=== PATIENT | female | born 1955 | race Caucasian/White ===

== ENCOUNTER 2023-01-10 09:54 | Emergency (ER) | payer MEDICARE, MEDICAID ==
[2023-01-10] MEDS ORDERED: Ondansetron 4 MG Tab.DIS PO ONE (11:34)
[2023-01-10] MEDS ORDERED: Acetaminophen/oxyCODONE 325-5 MG Tab PO ONE (11:34)
== END 2023-01-10 13:47 | disposition home or self-care (01) ==
LOC: JD.ED 09:54
DX: S39.012A Strain of muscle, fascia and tendon of lower back, initial encounter (principal); S13.4XXA Sprain of ligaments of cervical spine, initial encounter; S00.03XA Contusion of scalp, initial encounter; E66.9 Obesity, unspecified; Z68.41 Body mass index [BMI] 40.0-44.9, adult; Z88.0 Allergy status to penicillin; Z88.2 Allergy status to sulfonamides; W17.89XA Other fall from one level to another, initial encounter; Y92.512 Supermarket, store or market as the place of occurrence of the external cause
CPT/HCPCS: 70450; 72125; 72131; 99283; A9270

== ENCOUNTER 2023-04-24 09:17 | Emergency (ER) | payer MEDICARE, MEDICAID ==
[2023-04-24] MEDS ORDERED: Sodium Chloride 0.9% 10 ML Syringe FLUSH PRN (09:33)
[2023-04-24 09:54] LABS: BASOPHILS PERCENT AUTO 0.5 % (0.0-1.0); EOSINOPHILS ABSOLUTE AUTO 0.1 K/mm3 (0.0-0.4); EOSINOPHILS PERCENT AUTO 3.2 % (0.0-6.0); HEMATOCRIT 38.3 % (37.0-47.0); HEMOGLOBIN 12.4 gm/dl (12.0-16.0); IMMATURE GRAN ABSOLUTE AUTO 0.02 K/mm3 (0.00-0.05); IMMATURE GRAN PERCENT AUTO 0.5 % (0.0-0.4); LYMPHOCYTES ABSOLUTE AUTO 1.2 K/mm3 (1.0-4.8); LYMPHOCYTES PERCENT AUTO 26.4 % (24.0-44.0); MEAN CORPUSCULAR HEMOGLOBIN 28.9 pg (28.0-32.0); MEAN CORPUSCULAR HGB CONC 32.4 g/dl (32.0-36.0); MEAN CORPUSCULAR VOLUME 89.3 fl (83.0-99.0); MEAN PLATELET VOLUME 9.7 fl (9.4-12.3); MONOCYTES ABSOLUTE AUTO 0.4 K/mm3 (0.0-0.8); NEUTROPHILS ABSOLUTE AUTO 2.7 K/mm3 (1.8-7.7); NEUTROPHILS PERCENT AUTO 61.4 % (41.0-71.0); PLATELET COUNT,PLT 198 K/mm3 (150-400); RED BLOOD CELL COUNT 4.29 M/mm3 (4.10-5.30); WHITE BLOOD CELL COUNT,WBC 4.35 K/mm3 (3.9-11.3)
[2023-04-24 10:19] LABS: A/G RATIO 0.6 (1-2); ALBUMIN 2.9 g/dl (3.4-5.0); ANION GAP 15.5 (5-15); BILIRUBIN TOTAL 0.4 mg/dL (0.2-1.0); BUN/CREATININE RATIO 3.9 (14-18); CALCIUM 8.2 mg/dL (8.5-10.1); CREATININE 1.8 mg/dL (0.55-1.02); EST CRCL DRUG DOSING (CG) 21.78 mL/min; POTASSIUM,K 3.5 mEq/L (3.5-5.1); PROTEIN TOTAL,TP 7.4 g/dl (6.4-8.2)
[2023-04-24 10:22] LABS: CORONAVIRUS COVID-19 NAA NEGATIVE (NEGATIVE); INFLUENZA A NAA POSITIVE (NEGATIVE); RESPIRATORY SYNCYTIAL VIR NAA NEGATIVE (NEGATIVE)
[2023-04-24] MEDS ORDERED: Oseltamivir 75 MG Cap PO ONE (12:45)
[2023-04-24] MEDS ORDERED: Lactated Ringers 1,000 ML IV ONE (12:45)
[2023-04-24] MEDS ORDERED: Ketorolac 30 MG/ML SDV IVPUSH ONE ×2 (12:45→13:00)
[2023-04-24] MEDS ORDERED: Oseltamivir 30 MG Cap PO ONE (13:00)
[2023-04-24 14:38] LABS: APPEARANCE,URINE SLT CLOUDY (Clear); BILIRUBIN,URINE NEGATIVE (Negative); COLOR,URINE YELLOW (Yellow); GLUCOSE,URINE TRACE (Negative); KETONES,URINE NEGATIVE (Negative); LEUKOCYTE ESTERASE,URINE NEGATIVE (Negative); NITRITE,URINE NEGATIVE (Negative); OCCULT BLOOD,URINE NEGATIVE (Negative); PH,URINE 6.5 (5.0-8.0); PROTEIN,URINE 2+ (Negative); UROBILINOGEN,URINE 0.2 (0.2-1.0)
[2023-04-24 14:41] LABS: BACTERIA,URINE FEW /hpf (FEW); MUCUS,URINE MODERATE /hpf (FEW); RBC,URINE 0-5 /hpf (0-5); WBC,URINE 0-5 /hpf (0-5)
== END 2023-04-24 16:05 | disposition home or self-care (01) ==
LOC: JD.ED 09:17
DX: J10.1 Influenza due to other identified influenza virus with other respiratory manifestations (principal); I12.9 Hypertensive chronic kidney disease with stage 1 through stage 4 chronic kidney disease, or unspecified chronic kidney disease; N18.9 Chronic kidney disease, unspecified; E11.9 Type 2 diabetes mellitus without complications; Z79.4 Long term (current) use of insulin; Z88.0 Allergy status to penicillin; Z88.2 Allergy status to sulfonamides
CPT/HCPCS: 0241U; 36415; 71045; 80053; 81001; 83605; 85025; 87040; 87086; 96361; 96374; 99283; A9270; J1885; J3490; J7120; 99284

== ENCOUNTER 2024-01-10 01:32 | Observation (INO) | payer OTHER ==
[2024-01-10 02:14] LABS: BASOPHILS PERCENT AUTO 0.3 % (0.0-1.0); EOSINOPHILS ABSOLUTE AUTO 0.2 K/mm3 (0.0-0.4); EOSINOPHILS PERCENT AUTO 1.5 % (0.0-6.0); HEMOGLOBIN 12.1 gm/dl (12.0-16.0); IMMATURE GRAN ABSOLUTE AUTO 0.03 K/mm3 (0.00-0.05); IMMATURE GRAN PERCENT AUTO 0.3 % (0.0-0.4); LYMPHOCYTES PERCENT AUTO 49.5 % (24.0-44.0); MEAN CORPUSCULAR HEMOGLOBIN 27.5 pg (28.0-32.0); MEAN CORPUSCULAR HGB CONC 31.8 g/dl (32.0-36.0); MEAN CORPUSCULAR VOLUME 86.4 fl (83.0-99.0); MEAN PLATELET VOLUME 10.2 fl (9.4-12.3); MONOCYTES ABSOLUTE AUTO 0.4 K/mm3 (0.0-0.8); MONOCYTES PERCENT AUTO 4.2 % (0.0-8.0); NEUTROPHILS ABSOLUTE AUTO 4.5 K/mm3 (1.8-7.7); NEUTROPHILS PERCENT AUTO 44.2 % (41.0-71.0); PLATELET COUNT,PLT 220 K/mm3 (150-400); WHITE BLOOD CELL COUNT,WBC 10.16 K/mm3 (3.9-11.3)
[2024-01-10] MEDS: Albuterol/Ipratropium 3.0-0.5 MG/3 ML Neb Soln NEB ONE ×2 (02:21→02:46)
[2024-01-10] MEDS: Furosemide 40 MG/4 ML VIAL IVPUSH ONE (02:31)
[2024-01-10] MEDS: Sodium Chloride 0.9% 10 ML Syringe FLUSH PRN (02:32)
[2024-01-10 02:45] LABS: A/G RATIO 0.8 (1-2); ALBUMIN 3.2 g/dl (3.4-5.0); ANION GAP 14.2 (5-15); BILIRUBIN TOTAL 0.3 mg/dL (0.2-1.0); BUN/CREATININE RATIO 8.8 (14-18); C-REACTIVE PROTEIN 0.84 mg/dL (<0.30); CALCIUM 8.6 mg/dL (8.5-10.1); CREATININE 1.7 mg/dL (0.55-1.02); EST CRCL DRUG DOSING (CG) 22.75 mL/min; MAGNESIUM 1.9 mg/dL (1.8-2.4); POTASSIUM,K 3.2 mEq/L (3.5-5.1); PROTEIN TOTAL,TP 7.3 g/dl (6.4-8.2)
[2024-01-10 02:59] LABS: SLIDE REVIEW ABNORMAL SMEAR
[2024-01-10 03:01] LABS: LACTIC ACID 2.7 mmol/L (0.4-2.0)
[2024-01-10] MEDS: methylPREDNISolone Sodium Succinate 125 MG/2 ML SDV IVPUSH ONE (03:17)
[2024-01-10] MEDS: Sodium Chloride 0.9% 1,000 ML IV SCH (03:17)
[2024-01-10] MEDS: Albuterol 0.5% 2.5 MG/0.5 ML Neb Soln NEB ONE (03:23)
[2024-01-10 04:12] LABS: CORONAVIRUS COVID-19 NAA NEGATIVE (NEGATIVE); INFLUENZA A NAA NEGATIVE (NEGATIVE); RESPIRATORY SYNCYTIAL VIR NAA NEGATIVE (NEGATIVE)
[2024-01-10] MEDS: Magnesium Sulfate/Water Premix 2 GM/50 ML BAG IV ONE (04:54)
[2024-01-10] MEDS: LORazepam 2 MG/ML SDV IVPUSH ONE (04:55)
[2024-01-10] MEDS: HYDROmorphone 1 MG/ML Syringe IVPUSH ONE (04:57)
[2024-01-10] MEDS: Albuterol 0.083% 2.5 MG/3 ML Neb Soln NEB ONE (07:35)
[2024-01-10] MEDS: Lactated Ringers 1,000 ML IV SCH (08:25)
[2024-01-10] MEDS: Insulin Lispro 100 Unit/ML 3 ML KwikPen SUBCUT ONE (09:30)
[2024-01-10] MEDS: Insulin Glargine,Human Rec. Analog 100 Units/ML 3 ML Pen SUBCUT ONE (09:32)
[2024-01-10] MEDS ORDERED: Melatonin 3 MG Tab PO PRN (10:03)
[2024-01-10] MEDS ORDERED: Naloxone 0.4 MG/ML SDV IVPUSH PRN (10:03)
[2024-01-10] MEDS ORDERED: Sennosides/Docusate Sodium 50-8.6 MG Tab PO PRN (10:03)
[2024-01-10] MEDS ORDERED: Morphine 2 MG/ML SYRINGE IVPUSH PRN (10:03)
[2024-01-10] MEDS ORDERED: LANOLIN TOP PRN (10:25)
[2024-01-10] MEDS ORDERED: [UNRECOGNIZED DRUG - OTHER] TOP PRN (10:25)
[2024-01-10] MEDS ORDERED: SUMAtriptan 50 MG Tab PO PRN (10:25)
[2024-01-10] MEDS ORDERED: Nystatin Crm 30 GM Tube TOP PRN (10:25)
[2024-01-10] MEDS ORDERED: Non-Formulary Medication 1 Each (Albuterol Sulfate [Proair Digihaler] 90 MCG Aer.Pw.Bas) INH PRN (10:25)
[2024-01-10] MEDS ORDERED: Lactulose Soln 10 GM/15 ML 30 ML UD Cup PO PRN (10:25)
[2024-01-10] MEDS ORDERED: PETROLATUM TOP PRN (10:25)
[2024-01-10] MEDS ORDERED: SUVOREXANT 20 MG PO PRN (10:25)
[2024-01-10] MEDS ORDERED: MINERAL OIL TOP PRN (10:25)
[2024-01-10] MEDS ORDERED: Glucagon,Human Recombinant 1 MG Vial IM PRN (10:28)
[2024-01-10] MEDS ORDERED: 50% Dextrose in Water 50 ML Syringe IVPUSH PRN (10:28)
[2024-01-10] MEDS ORDERED: Non-Formulary Medication 1 Each (Fluticasone Propion/Salmeterol [Fluticasone-Salmeterol 50 INH SCH (10:30)
[2024-01-10] MEDS ORDERED: Pantoprazole 40 MG Tab.CR PO SCH (10:30)
[2024-01-10] MEDS: Insulin Lispro 100 Unit/ML 3 ML KwikPen SUBCUT SCH ×2 (11:33→11:36)
[2024-01-10 11:34] LABS: APPEARANCE,URINE CLEAR (Clear); BILIRUBIN,URINE NEGATIVE (Negative); COLOR,URINE YELLOW (Yellow); GLUCOSE,URINE 1+ (Negative); KETONES,URINE NEGATIVE (Negative); LEUKOCYTE ESTERASE,URINE NEGATIVE (Negative); NITRITE,URINE NEGATIVE (Negative); OCCULT BLOOD,URINE NEGATIVE (Negative); PH,URINE 5.5 (5.0-8.0); PROTEIN,URINE NEGATIVE (Negative); UROBILINOGEN,URINE 0.2 (0.2-1.0)
[2024-01-10] MEDS: Potassium Chloride 20 MEQ Tab.ER PO ONE (11:36)
[2024-01-10] MEDS: Pantoprazole 40 MG Tab.CR PO SCH (11:53)
[2024-01-10] MEDS: Lactated Ringers 500 ML IV ONE (13:05)
[2024-01-10] MEDS: Ondansetron 4 MG/2 ML SDV IV PRN (15:26)
[2024-01-10] MEDS: Benzonatate 100 MG Cap PO PRN (15:33)
[2024-01-10] MEDS: oxyCODONE 5 MG Tab PO PRN (15:33)
[2024-01-10] MEDS: Albuterol/Ipratropium 3.0-0.5 MG/3 ML Neb Soln NEB PRN (17:45)
[2024-01-10] MEDS: Insulin Glargine,Human Rec. Analog 100 Units/ML 3 ML Pen SUBCUT SCH (22:38)
[2024-01-10] MEDS: Sodium Bicarbonate 650 MG Tab PO SCH (23:02)
[2024-01-10] MEDS: rOPINIRole 1 MG Tab PO SCH (23:02)
[2024-01-10] MEDS: Gabapentin 600 MG Tab PO SCH (23:02)
[2024-01-10] MEDS: QUEtiapine 100 MG Tab PO SCH (23:03)
[2024-01-11 06:35] LABS: BASOPHILS PERCENT AUTO 0.1 % (0.0-1.0); HEMATOCRIT 32.2 % (37.0-47.0); IMMATURE GRAN ABSOLUTE AUTO 0.13 K/mm3 (0.00-0.05); IMMATURE GRAN PERCENT AUTO 0.8 % (0.0-0.4); LYMPHOCYTES ABSOLUTE AUTO 1.3 K/mm3 (1.0-4.8); LYMPHOCYTES PERCENT AUTO 7.3 % (24.0-44.0); MEAN CORPUSCULAR HEMOGLOBIN 27.5 pg (28.0-32.0); MEAN CORPUSCULAR VOLUME 86.1 fl (83.0-99.0); MONOCYTES ABSOLUTE AUTO 0.8 K/mm3 (0.0-0.8); MONOCYTES PERCENT AUTO 4.6 % (0.0-8.0); NEUTROPHILS ABSOLUTE AUTO 14.8 K/mm3 (1.8-7.7); NEUTROPHILS PERCENT AUTO 87.2 % (41.0-71.0); PLATELET COUNT,PLT 251 K/mm3 (150-400); RED BLOOD CELL COUNT 3.74 M/mm3 (4.10-5.30); WHITE BLOOD CELL COUNT,WBC 17.01 K/mm3 (3.9-11.3)
[2024-01-11 06:36] LABS: HEMOGLOBIN 10.3 gm/dl (12.0-16.0)
[2024-01-11] MEDS: Levothyroxine 25 MCG Tab PO SCH (06:45)
[2024-01-11] MEDS: Acetaminophen 325 MG Tab PO PRN (06:56)
[2024-01-11 07:01] LABS: A/G RATIO 0.7 (1-2); ALBUMIN 2.8 g/dl (3.4-5.0); ANION GAP 13.6 (5-15); BILIRUBIN TOTAL 0.2 mg/dL (0.2-1.0); BUN/CREATININE RATIO 11.1 (14-18); CALCIUM 8.1 mg/dL (8.5-10.1); CREATININE 1.8 mg/dL (0.55-1.02); EST CRCL DRUG DOSING (CG) 21.49 mL/min; MAGNESIUM 2.4 mg/dL (1.8-2.4); PHOSPHORUS 2.7 mg/dL (2.6-4.7); PROTEIN TOTAL,TP 6.7 g/dl (6.4-8.2); TSH 2.392 uIU/mL (0.358-3.74)
[2024-01-11 07:08] LABS: POTASSIUM,K 5.6 mEq/L (3.5-5.1)
[2024-01-11] MEDS: predniSONE 20 MG Tab PO SCH (07:51)
[2024-01-11] MEDS ORDERED: CYANOCOBALAMIN PO SCH (09:00)
[2024-01-11] MEDS ORDERED: FOLIC ACID PO SCH (09:00)
[2024-01-11] MEDS ORDERED: [UNRECOGNIZED DRUG - OTHER] PO SCH (09:00)
[2024-01-11] MEDS ORDERED: Cholecalciferol (Vitamin D3) 5,000 UNIT Tab PO SCH (09:00)
[2024-01-11] MEDS: Enoxaparin 30 MG/0.3 ML Syringe SUBCUT SCH (09:46)
[2024-01-11] MEDS: FLUoxetine 20 MG Cap PO SCH (09:47)
[2024-01-11] MEDS: Cholecalciferol (Vitamin D3) 5,000 UNIT Cap PO SCH (09:47)
[2024-01-11] MEDS: Allopurinol 100 MG Tab PO SCH (09:47)
[2024-01-11] MEDS: Aspirin 81 MG Tab.Chew PO SCH (09:47)
[2024-01-11] MEDS: Empagliflozin 25 MG Tab PO SCH (09:47)
[2024-01-11] MEDS: Rosuvastatin 10 MG Tab PO SCH (09:47)
[2024-01-11] MEDS: Calcium Carbonate 500 MG Tab.Chew PO SCH (09:48)
[2024-01-11] MEDS: Furosemide 20 MG Tab PO SCH (09:48)
[2024-01-11 10:56] LABS: ANION GAP 14.9 (5-15); BUN/CREATININE RATIO 13.3 (14-18); CREATININE 1.8 mg/dL (0.55-1.02); EST CRCL DRUG DOSING (CG) 21.49 mL/min; POTASSIUM,K 4.9 mEq/L (3.5-5.1)
[2024-01-11] MEDS: Benzocaine/Cetylpyridinium/Menthol Lozenge MUCMEM PRN (23:12)
[2024-01-12 06:41] LABS: HEMATOCRIT 33.6 % (37.0-47.0); HEMOGLOBIN 10.7 gm/dl (12.0-16.0); MEAN CORPUSCULAR HEMOGLOBIN 27.6 pg (28.0-32.0); MEAN CORPUSCULAR HGB CONC 31.8 g/dl (32.0-36.0); MEAN CORPUSCULAR VOLUME 86.6 fl (83.0-99.0); MEAN PLATELET VOLUME 10.1 fl (9.4-12.3); PLATELET COUNT,PLT 244 K/mm3 (150-400); RED BLOOD CELL COUNT 3.88 M/mm3 (4.10-5.30); WHITE BLOOD CELL COUNT,WBC 12.93 K/mm3 (3.9-11.3)
[2024-01-12 07:06] LABS: ANION GAP 10.2 (5-15); EST CRCL DRUG DOSING (CG) 19.34 mL/min; PHOSPHORUS 3.8 mg/dL (2.6-4.7); POTASSIUM,K 4.2 mEq/L (3.5-5.1)
[2024-01-14 18:42] LABS: VITAMIN B1, WHOLE BLOOD 121 nmol/L (70-180)
== END 2024-01-12 14:32 | disposition home or self-care (01) ==
LOC: JD.ED 01:32 → JD.MS 10:03
PROVIDERS: ADMIT Student in an Organized Health Care Education/Training Program; ATTEND Student in an Organized Health Care Education/Training Program
DX: J45.901 Unspecified asthma with (acute) exacerbation (principal); I12.9 Hypertensive chronic kidney disease with stage 1 through stage 4 chronic kidney disease, or unspecified chronic kidney disease; E11.22 Type 2 diabetes mellitus with diabetic chronic kidney disease; N18.30 Chronic kidney disease, stage 3 unspecified; M94.0 Chondrocostal junction syndrome [Tietze]; D72.829 Elevated white blood cell count, unspecified; E87.20 Acidosis, unspecified; E03.9 Hypothyroidism, unspecified; K21.9 Gastro-esophageal reflux disease without esophagitis; Z79.899 Other long term (current) drug therapy; Z79.82 Long term (current) use of aspirin; Z79.4 Long term (current) use of insulin; Z79.890 Hormone replacement therapy; Z91.011 Allergy to milk products; Z88.0 Allergy status to penicillin; Z88.2 Allergy status to sulfonamides; Z20.822 Contact with and (suspected) exposure to COVID-19
CPT/HCPCS: 0241U; 36415; 71045; 80048; 80053; 81003; 82947; 83036; 83605; 83735; 83880; 84100; 84425; 84443; 84484; 85025; 85027; 86140; 87040; 87641; 93005; 94640; 94760; 94761; 96361; 96365; 96366; 96372; 96375; 96376; 99285; A9270; G0378; J1171; J1650; J1815; J1940; J2060; J2405; J2919; J3475; J3490; J7030; J7120; J7512; J7620-GY

== ENCOUNTER 2024-09-12 20:42 | Emergency (ER) | payer OTHER ==
[2024-09-12 20:57] LABS: BASOPHILS PERCENT AUTO 0.1 % (0.0-1.0); EOSINOPHILS ABSOLUTE AUTO 0.1 K/mm3 (0.0-0.4); EOSINOPHILS PERCENT AUTO 1.1 % (0.0-6.0); HEMATOCRIT 35.6 % (37.0-47.0); HEMOGLOBIN 11.6 gm/dl (12.0-16.0); IMMATURE GRAN ABSOLUTE AUTO 0.06 K/mm3 (0.00-0.05); IMMATURE GRAN PERCENT AUTO 0.8 % (0.0-0.4); LYMPHOCYTES PERCENT AUTO 24.6 % (24.0-44.0); MEAN CORPUSCULAR HEMOGLOBIN 27.6 pg (28.0-32.0); MEAN CORPUSCULAR HGB CONC 32.6 g/dl (32.0-36.0); MEAN CORPUSCULAR VOLUME 84.8 fl (83.0-99.0); MEAN PLATELET VOLUME 9.5 fl (9.4-12.3); MONOCYTES ABSOLUTE AUTO 0.4 K/mm3 (0.0-0.8); MONOCYTES PERCENT AUTO 4.9 % (0.0-8.0); NEUTROPHILS ABSOLUTE AUTO 5.5 K/mm3 (1.8-7.7); NEUTROPHILS PERCENT AUTO 68.5 % (41.0-71.0); PLATELET COUNT,PLT 194 K/mm3 (150-400); WHITE BLOOD CELL COUNT,WBC 7.97 K/mm3 (3.9-11.3)
[2024-09-12] MEDS: methylPREDNISolone Sodium Succinate 125 MG/2 ML SDV IVPUSH ONE (20:59)
[2024-09-12] MEDS: Albuterol/Ipratropium 3.0-0.5 MG/3 ML Neb Soln NEB ONE ×3 (21:08→23:44)
[2024-09-12 21:25] LABS: A/G RATIO 0.7 (1-2); ALBUMIN 2.8 g/dl (3.4-5.0); BILIRUBIN TOTAL 0.5 mg/dL (0.2-1.0); CALCIUM 9.1 mg/dL (8.5-10.1); CREATININE 1.5 mg/dL (0.55-1.02); EST CRCL DRUG DOSING (CG) 25.78 mL/min; PROTEIN TOTAL,TP 6.6 g/dl (6.4-8.2)
[2024-09-12 22:09] LABS: APPEARANCE,URINE CLEAR (Clear); BILIRUBIN,URINE NEGATIVE (Negative); COLOR,URINE LIGHT YELLOW (Yellow); GLUCOSE,URINE NEGATIVE (Negative); KETONES,URINE NEGATIVE (Negative); LEUKOCYTE ESTERASE,URINE NEGATIVE (Negative); NITRITE,URINE NEGATIVE (Negative); OCCULT BLOOD,URINE NEGATIVE (Negative); PH,URINE 6.5 (5.0-8.0); PROTEIN,URINE NEGATIVE (Negative); UROBILINOGEN,URINE 0.2 (0.2-1.0)
[2024-09-12] MEDS: Iopamidol 755 Mg/ML 100 ML Bottle IVPUSH ONE (22:51)
[2024-09-12] MEDS: Sodium Chloride 0.9% 45 ML IV SCH (22:52)
[2024-09-12] MEDS: Sodium Chloride 0.9% 10 ML Syringe FLUSH PRN (22:52)
[2024-09-12] MEDS: Sodium Chloride 0.9% 500 ML IV ONE (22:55)
[2024-09-13] MEDS: Potassium Chloride 20 MEQ Tab.ER PO ONE (00:09)
== END 2024-09-13 00:11 | disposition home or self-care (01) ==
LOC: JD.ED 20:42
DX: J44.1 Chronic obstructive pulmonary disease with (acute) exacerbation (principal); I12.9 Hypertensive chronic kidney disease with stage 1 through stage 4 chronic kidney disease, or unspecified chronic kidney disease; E11.22 Type 2 diabetes mellitus with diabetic chronic kidney disease; N18.9 Chronic kidney disease, unspecified; E03.9 Hypothyroidism, unspecified; Z79.82 Long term (current) use of aspirin; Z79.4 Long term (current) use of insulin; Z79.890 Hormone replacement therapy; Z79.899 Other long term (current) drug therapy; Z88.2 Allergy status to sulfonamides; Z91.011 Allergy to milk products; Z88.0 Allergy status to penicillin
CPT/HCPCS: 36415; 71045; 71045-26; 71275; 71275-26; 80053; 81003; 83880; 84484; 85025; 93005; 94640; 96374; 99284; 99285-25; A9270-GY; J2919; J7030; Q9967

== ENCOUNTER 2024-12-26 20:09 | Emergency (ER) | payer OTHER ==
[2024-12-26] MEDS ORDERED: Sodium Chloride 0.9% 10 ML Syringe FLUSH PRN (20:26)
[2024-12-26 20:43] LABS: BASOPHILS ABSOLUTE AUTO 0.0 K/mm3 (0.0-0.2); BASOPHILS PERCENT AUTO 0.3 % (0.0-1.0); EOSINOPHILS ABSOLUTE AUTO 0.1 K/mm3 (0.0-0.4); EOSINOPHILS PERCENT AUTO 1.7 % (0.0-6.0); IMMATURE GRAN ABSOLUTE AUTO 0.05 K/mm3 (0.00-0.05); IMMATURE GRAN PERCENT AUTO 0.7 % (0.0-0.4); LYMPHOCYTES ABSOLUTE AUTO 2.0 K/mm3 (1.0-4.8); LYMPHOCYTES PERCENT AUTO 28.1 % (24.0-44.0); MEAN PLATELET VOLUME 10.3 fl (9.4-12.3); MONOCYTES ABSOLUTE AUTO 0.4 K/mm3 (0.0-0.8); MONOCYTES PERCENT AUTO 5.6 % (0.0-8.0); NEUTROPHILS ABSOLUTE AUTO 4.6 K/mm3 (1.8-7.7); NEUTROPHILS PERCENT AUTO 63.6 % (41.0-71.0); NRBC ABSOLUTE 0.00 (0.00-0.02); NRBC PERCENT 0.0 % (0.0-0.2); PLATELET COUNT,PLT 207 K/mm3 (150-400); RED BLOOD CELL COUNT 4.30 M/mm3 (4.10-5.30); WHITE BLOOD CELL COUNT,WBC 7.16 K/mm3 (3.9-11.3)
[2024-12-26 20:46] LABS: APPEARANCE,URINE CLEAR (Clear); GLUCOSE,URINE 2+ (Negative); OCCULT BLOOD,URINE NEGATIVE (Negative)
[2024-12-26 21:17] LABS: A/G RATIO 0.8 (1-2); ALANINE AMINOTRANSFERASE,ALT 31.0 U/L (14-59); ASPARTATE AMNIOTRANSFERASE,AST 23.0 U/L (15-37); BILIRUBIN TOTAL 0.7 mg/dL (0.2-1.0); BLOOD UREA NITROGEN,BUN 13.0 mg/dL (7-18); CARBON DIOXIDE,CO2 27.0 mEq/L (21-32); CHLORIDE,CL 98.0 mEq/L (98-107); CREATININE 1.9 mg/dL (0.55-1.02); EST CRCL DRUG DOSING (CG) 20.07 mL/min; ESTIMATED GFR 28.0 mL/min (>60); POTASSIUM,K 3.6 mEq/L (3.5-5.1); PROTEIN TOTAL,TP 6.7 g/dl (6.4-8.2); SODIUM,NA 135.0 mEq/L (136-145); TROPONIN I HIGH SENSITIVITY 11.0 pg/mL (<=51)
[2024-12-26 21:20] LABS: GLUCOSE RANDOM 401.0 mg/dL (70-99)
[2024-12-26] MEDS ORDERED: 50% Dextrose in Water 50 ML Syringe IVPUSH PRN (21:26)
[2024-12-26] MEDS: Insulin Regular, Human 100 Units/ML 10 ML Vial SUBCUT ONE (21:46)
[2024-12-26] MEDS: Potassium Chloride 20 MEQ Tab.ER PO ONE (21:46)
[2024-12-26 21:51] LABS: BASE EXCESS VENOUS 4.1 (-4.0-2.0); BICARBONATE,VENOUS 28.5 meq/L (22-26); O2 SATURATION VENOUS 69.2; PCO2 VENOUS 41.0 mmHg (41-51); PH,VENOUS 7.45 (7.30-7.40); PO2 VENOUS 39.0 mmHG (40-80)
== END 2024-12-26 23:05 | disposition home or self-care (01) ==
LOC: JD.ED 20:09
DX: E11.65 Type 2 diabetes mellitus with hyperglycemia (principal); I12.9 Hypertensive chronic kidney disease with stage 1 through stage 4 chronic kidney disease, or unspecified chronic kidney disease; E03.9 Hypothyroidism, unspecified; E11.22 Type 2 diabetes mellitus with diabetic chronic kidney disease; N18.9 Chronic kidney disease, unspecified; Z79.899 Other long term (current) drug therapy; Z79.890 Hormone replacement therapy; Z79.1 Long term (current) use of non-steroidal anti-inflammatories (NSAID); Z91.011 Allergy to milk products; Z88.0 Allergy status to penicillin; Z88.2 Allergy status to sulfonamides
CPT/HCPCS: 36415; 71045; 80053; 81001; 82010; 82803; 82947; 83880; 84484; 85025; 93005; 99285; A9270; J1815; 99283

== ENCOUNTER 2025-01-06 07:10 | Day surgery (SDC) | payer MEDICAID, OTHER ==
[~2025-01-06 07:10] MED LIST: Sodium Chloride 0.9% 10 ML Syringe FLUSH PRN; Sodium Chloride 0.9% 10 ML Syringe FLUSH SCH
[2025-01-06] MEDS: Lactated Ringers 1,000 ML IV SCH (08:00)
[2025-01-06] MEDS ORDERED: Propofol 200 MG/20 ML SDV ONE ×2 (08:07→09:00)
[2025-01-06] MEDS ORDERED: Labetalol 100 MG/20 ML MDV ONE (08:55)
[2025-01-06] MEDS: Ondansetron 4 MG/2 ML SDV IVPUSH PRN (09:35)
== END 2025-01-06 10:18 | disposition home or self-care (01) ==
LOC: JD.SDS 07:10
PROVIDERS: ATTEND Surgery
DX: Z12.11 Encounter for screening for malignant neoplasm of colon (principal); D12.0 Benign neoplasm of cecum; I10 Essential (primary) hypertension; E11.9 Type 2 diabetes mellitus without complications; E03.9 Hypothyroidism, unspecified; Z88.2 Allergy status to sulfonamides; Z88.0 Allergy status to penicillin; Z79.4 Long term (current) use of insulin; Z79.82 Long term (current) use of aspirin; Z79.899 Other long term (current) drug therapy; Z91.030 Bee allergy status; Z91.0110 Allergy to milk products, unspecified; Z86.0101 Personal history of adenomatous and serrated colon polyps; Z79.890 Hormone replacement therapy
CPT/HCPCS: 45384; J1920; J2405; J2704; J7120; 00811